=== PATIENT | female | born 1935 | race Caucasian/White ===

== ENCOUNTER 2018-11-26 07:28 | Outpatient (CLI) | payer MEDICARE, OTHER ==
[2018-11-26 15:48] LABS: #Eosinphils 0.2 thou/uL (0.0-0.7); #Lymphocytes 1.2 thou/uL (1.20-3.40); #Monocytes 0.5 thou/uL (0.11-0.59); #Neutrophils 4.2 thou/uL (1.40-6.50); %Basophils 0.7 % (0.0-1.0); %Lymphocytes 19.6 % (21.0-51.0); %Monocytes 8.1 % (0.0-10.0); %Neutrophils 68.6 % (42.0-75.0); Mean Corpuscular HGB CONC 33.7 g/dL (32.0-36.0); Mean Corpuscular Hemoglobin 31.8 pg (27.0-31.0); Mean Corpuscular Volume 94.5 fL (78.0-98.0); Platelet Count 156 thou/uL (130-400); RBC Distribution Width 12.5 % (11.5-14.5); White Blood Cell (WBC) Count 6.1 thou/uL (4.8-10.8)
[2018-11-26 16:03] LABS: Bacteria/HPF None Seen HPF (None Seen); Bilirubin Negative (Negative); Blood, Urine Negative (Negative); Clarity Clear (Clear); Glucose, Urine (Dipstick) Normal (Negative); Leukocyte Negative Leu/uL (Negative); Nitrite Negative (Negative); Protein, Urine (Dipstick) 10 mg/dL (Neg-Trace); Squamous Epithelial None Seen HPF (0-3); Urobilinogen Normal mg/dL (Less than 2); WBC/HPF 0-3 HPF (0-3)
[2018-11-26 16:10] LABS: Anion Gap 10 mmol/L (10-20); BUN (Urea Nitrogen) 15 mg/dL (9.8-20.1); Calc. Creatinine Clearance 0 mL/min (70-130); Calcium 9.3 mg/dL (7.8-10.44); Carbon Dioxide 30 mmol/L (23-31); Chloride 104 mmol/L (98-107); Estimated GFR-MDRD 64; Glucose 83 mg/dL (83-110); Potassium 4.2 mmol/L (3.5-5.1); Sodium 140 mmol/L (136-145)
== END 2018-11-26 07:29 | disposition home or self-care (01) ==
LOC: LABBT 07:28
PROVIDERS: ATTEND Orthopaedic Surgery Hand Surgery
DX: Z01.812 Encounter for preprocedural laboratory examination (principal); S66.812A Strain of other specified muscles, fascia and tendons at wrist and hand level, left hand, initial encounter; T84.84XA Pain due to internal orthopedic prosthetic devices, implants and grafts, initial encounter
CPT/HCPCS: 80048; 81001; 85025

== ENCOUNTER 2018-11-28 08:44 | Day surgery (SDC) | payer MEDICARE, OTHER ==
[2018-11-26 13:34] VITALS: BMI 25.7
[2018-11-28] MEDS ORDERED: Betamet Acet/Betamet Na Ph 30 MG/5 ML VIAL ONE (12:19)
[2018-11-28] MEDS ORDERED: Sodium Chloride 0.9% 10 ML ONE (12:19)
[2018-11-28] MEDS ORDERED: Bupivacaine PF 0.5% 30 ML VIAL ONE (12:19)
[2018-11-28] MEDS ORDERED: Chloroprocaine HCl/PF 20 ML VIAL ONE (12:26)
[2018-11-28] MEDS ORDERED: Propofol 1,000 MG/100 ML VIAL IV ONE (12:38)
[2018-11-28] MEDS ORDERED: traMADol HCl 50 MG TAB PO PRN ×2 (12:54)
[2018-11-28] MEDS ORDERED: Ondansetron PF 4 MG/2 ML Vial IVP PRN (12:54)
[2018-11-28] MEDS ORDERED: Zolpidem Tartrate 5 MG TAB PO PRN (12:54)
[2018-11-28] MEDS ORDERED: Promethazine HCl 25 MG/ML VIAL IM PRN ×2 (12:54→16:25)
[2018-11-28] MEDS ORDERED: HYDROcodone/Acetaminophen 10/325 mg Tablet PO PRN ×2 (12:54)
[2018-11-28] MEDS ORDERED: Ropivacaine 0.2% 550 ML 550 ML NERVE BLCK SCH (12:54)
[2018-11-28] MEDS ORDERED: Fentanyl 100 MCG/2 ML VIAL SLOW IVP PRN (12:55)
[2018-11-28] MEDS ORDERED: Ropivacaine 0.2% HCl/PF (40 MG/20 ML VIAL) ONE (13:21)
[2018-11-28] MEDS ORDERED: Ropivacaine 0.5% HCl/PF (150 MG/30 ML VIAL) ONE (13:21)
[2018-11-28] MEDS ORDERED: Ketorolac Tromethamine 30 MG/ML VIAL ONE (13:23)
[2018-11-28] MEDS ORDERED: PROPOFOL 200 MG/20 ML VIAL ONE (13:23)
[2018-11-28] MEDS ORDERED: Dexamethasone 20 MG/5 ML VIAL ONE (13:23)
--- NOTE | 2018-11-28 15:45 | RAD ---
EXAM: XR Wrist Lt 2 View PROVIDED CLINICAL HISTORY: Hardware removal COMPARISON: None FINDINGS: Spot fluoroscopic frontal and lateral views of the left wrist demonstrate changes compatible with the presence of prior volar plate and screw fixation of the distal radius. No remaining hardware is evident. IMPRESSION: As above.
[2018-11-28] MEDS ORDERED: Ondansetron HCl/PF 4 MG/2 ML Vial IVP PRN (16:25)
[2018-11-28] MEDS ORDERED: HYDROmorphone 2 MG/ML VIAL SLOW IVP PRN (16:25)
[2018-11-28] MEDS ORDERED: PACU-Morphine 4MG/ML VIAL SLOW IVP PRN (16:25)
[2018-11-28] MEDS ORDERED: CEFAZOLIN 1 GM VIAL ONE (16:25)
[2018-11-28] MEDS ORDERED: Morphine Sulfate 2 MG/ML SYRINGE SLOW IVP PRN (16:25)
[2018-11-28] MEDS ORDERED: Promethazine HCl 25 MG/ML VIAL SLOW IVP PRN (16:25)
[2018-11-28] MEDS ORDERED: Ketorolac Tromethamine 30 MG/ML VIAL IVP SCH (18:00)
--- NOTE | 2018-12-01 10:45 | OP ---
DATE OF PROCEDURE: 11/28/2018 PREOPERATIVE DIAGNOSES: 1. 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 2. Tendinitis with tenosynovitis over the ruptured stumps of all extensor digitorum communis tendons, extensor indicis proprius, extensor digiti minimi, extensor pollicis longus. PROCEDURES PERFORMED: 1. Pgmy-ol-lrdo repair, extensor digitorum communis of small finger to the ring finger; extensor digitorum communis of the index finger to the extensor indicis proprius . 2. Palmaris longus graft to the extensor digitorum communis of the ring finger, 8 mm graft segment; palmaris longus to the extensor digitorum of the middle finger, same 8 cm graft, each performed with graft and appropriate tension, Pulvertaft weave techniques. 3. Removal of deep implant volar distal radius, Arthrex. 4. Bone graft avulsion fracture plate using artificial bone graft substitute. 5. Open treatment, radius and styloid fracture avulsion. 6. C-arm. 7. Pin neurectomy. 8. Median nerve neuroplasty. 9. Tenotomy, extensor digitorum communis to the index finger/extensor digitorum communis to the middle finger/extensor digitorum communis to the ring finger. 10. Radial tenosynovectomy of the extensor digitorum communis to the small finger and ring finger needed. Extensor indicis proprius radical tenosynovectomy. Extensor digiti minimi radical tenosynovectomy. Flexor pollicis longus radical tenosynovectomy. INDICATIONS: The patient has returned to the hospital after having what appeared to be some type of rupture over the tendons in the region of all her screws of the volar plate procedure. The patient reports that . No numbness or tingling or other weakness to include no wrist or thumb weakness. DESCRIPTION OF PROCEDURE: The patient after having a time-out done appropriately and the incision site, side, and consent matched, had the limb prepped and draped. Tourniquet inflated to 250 mmHg pressure. We outlined area over the previous distal radius volar plate area, zigzag area where there was thickened tendon just distal to retinaculum, and we went back 10 cm on the palmar wrist incision to ensure we could visualize the plate as well as dissect down to find exact nature and injury of remnant. First, we went down and opened the retinaculum over the third dorsal compartment as well as pollicis longus, extensor digitorum communis to all the digits, the EIP and the EDQ. The patient had marked tenosynovitis of the extensor digitorum communis of small and ring finger, extensor indicis proprius, extensor digiti minimi, and extensor pollicis longus, so all these underwent radical flexor tenosynovectomy. The patient next had visualization of the extensor digitorum communis of index finger, middle finger, and ring finger better and found tenotomy might be better in order to . The patient then had, because of history, a median nerve neuroplasty performed to visualize the median nerve throughout its entire course to make sure it was not involved and also posterior interosseous nerve was resected in the base of the 4th dorsal compartment and removed. The patient then had the obvious extensor digitorum communis to the index finger with 4-0 Prolene [id number] placed appropriately and we did neurectomy within the floor of the compartment for posterior interosseous nerve. We then visualized the palmaris longus tendon after making a palmar approach, visualizing the distal radius screws, removing all screws and the plate, but during removal of the plate, there was a small separation of bone off the back of the plate/underside, so we decided to fill this area with putty to make it level and given a better healing potential in this age of female. The plate was now removed, we bone grafted the avulsion fracture, small, off the plate and we had done this as open treatment of radius shaft avulsion fracture. Now, we had finished dorsal tenotomies, we made a separate stab wound, harvested the palmaris longus tendon. We harvested a 22 mm strip as we thought we needed 16 to 20 mm. 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 The wound was irrigated. We then had then had the appropriate tension of Pulvertaft weave for these 2 digits, we repaired using a heavy Prolene, 4.0, extensor digitorum communis to extensor digitorum proprius [id number] of the small finger to the appropriate tendon. Now, the palmaris had excellent tension, the graft allowed passive flexion to 90 degrees MP joint, but remaining slight hyperextension. The patient reports she will not return to previous activity, it will put her at risk at the end of the procedure. Finally, the tourniquet was deflated. Hemostasis was obtained. There was no hematoma at the end of the tourniquet monitoring post release. We then did closure appropriately with a running 3-0 Monocryl except for the retinaculum which was reapproximated with 0 Vicryl in interrupted peolkc-do-yjcvi pattern. Hemostasis was then excellent, and we prepared for closure of the wound with a running 3-0 Monocryl subcutaneously. We saw that the wounds had excellent apposition, so we used benzoin and Steri-Strips on top of this, Adaptic, and the patient left the operating room for a period of time today. Job ID: [id number]
--- NOTE | 2018-12-04 05:50 | PQF ---
[facility] POST DISCHARGE CLINICAL DOCUMENTATION IMPROVEMENT CLARIFICATION FORM l Todays Date: 12/03/18 l Patients Name HEMALATHA DUKES l l Admit Date 12/01/18 l Disch Date 12/01/18 City Planning Engineer Name Krystina Oates Email: [email or web address] Cell: [phone] To be completed by City Planning Engineer: Present Clinical Indicators - Signs / Symptoms Results and Location in Medical Record [ ] Documentation of: [ ] [ ] Documentation of: [ ] [ ] Documentation of: [ ] [ ] Documentation of: [ ] [ ] Risks [ ] [ ] [ ] Treatment [ ] Need to verify accurate laterality for the procedure. Operative notes with right (R) laterality, H&P, ED, Post-op block notes with left (L) laterality. [ ] [ ] To be completed by Physician: LISSY HERNANDEZ The documentation in this patients record requires clarification to ensure coding compliance and accuracy. Check the appropriate box and include in your discharge summary. [ ] not sure this is my patient [ ] [ ] [ ] Please check this box if this does not apply to this patient [ ] Unable to determine [ ] Other diagnosis: Review the following information and exercise your independent professional judgment in responding to the clarification. Based upon the clinical findings, risk factors, and treatment, please clarify if you are treating one of the above probable or suspected diagnoses. Physician Signature: Date Time MTDD
== END 2018-11-28 19:05 | disposition home or self-care (01) ==
LOC: SDC 08:44
PROVIDERS: ATTEND Orthopaedic Surgery Hand Surgery
PROC: 0PPJ04Z Removal of Internal Fixation Device from Left Radius, Open Approach (ICD-10-PCS; principal; 2018-11-28)
PROC: 0LB80ZZ Excision of Left Hand Tendon, Open Approach (ICD-10-PCS; 2018-11-28)
PROC: 0LB80ZZ Excision of Left Hand Tendon, Open Approach (ICD-10-PCS; 2018-11-28)
PROC: 0LB80ZZ Excision of Left Hand Tendon, Open Approach (ICD-10-PCS; 2018-11-28)
PROC: 0LB80ZZ Excision of Left Hand Tendon, Open Approach (ICD-10-PCS; 2018-11-28)
PROC: 0LB80ZZ Excision of Left Hand Tendon, Open Approach (ICD-10-PCS; 2018-11-28)
PROC: 0LU607Z Supplement Left Lower Arm and Wrist Tendon with Autologous Tissue Substitute, Open Approach (ICD-10-PCS; 2018-11-28)
PROC: 0LU607Z Supplement Left Lower Arm and Wrist Tendon with Autologous Tissue Substitute, Open Approach (ICD-10-PCS; 2018-11-28)
PROC: 0LR707Z Replacement of Right Hand Tendon with Autologous Tissue Substitute, Open Approach (ICD-10-PCS; 2018-11-28)
PROC: 0LR707Z Replacement of Right Hand Tendon with Autologous Tissue Substitute, Open Approach (ICD-10-PCS; 2018-11-28)
PROC: 3E0T3BZ Introduction of Anesthetic Agent into Peripheral Nerves and Plexi, Percutaneous Approach (ICD-10-PCS; 2018-11-28)
DX: S66.311A Strain of extensor muscle, fascia and tendon of left index finger at wrist and hand level, initial encounter (principal); S66.313A Strain of extensor muscle, fascia and tendon of left middle finger at wrist and hand level, initial encounter; S66.315A Strain of extensor muscle, fascia and tendon of left ring finger at wrist and hand level, initial encounter; S66.317A Strain of extensor muscle, fascia and tendon of left little finger at wrist and hand level, initial encounter; T84.84XA Pain due to internal orthopedic prosthetic devices, implants and grafts, initial encounter; M65.841 Other synovitis and tenosynovitis, right hand; G89.18 Other acute postprocedural pain; I10 Essential (primary) hypertension; E78.00 Pure hypercholesterolemia, unspecified; F17.200 Nicotine dependence, unspecified, uncomplicated; M15.1 Heberden's nodes (with arthropathy); M15.2 Bouchard's nodes (with arthropathy); Z79.82 Long term (current) use of aspirin; Z79.899 Other long term (current) drug therapy
CPT/HCPCS: 20680; 26145 ×2; 26420 ×2; 64413; 73100; 76000; 88304; 93005; A4306; 93010; J0690; J0702; J1100; J1885; J2400; J2704; J2795; J3490; S0020